=== PATIENT | female | born 1980 | race American Indian/Alaskan Native ===

== ENCOUNTER 2019-10-26 12:33 | Emergency (ER) | payer OTHER ==
--- NOTE | 2019-10-26 13:19 | Emergency Department Report ---
Blank Doc - Documentation Documentation: 39-year-old female that presents with dizziness and diarrhea. Patient is s/p 6 days ago lap tubal ligation. This initial assessment/diagnostic orders/clinical plan/treatment(s) is/are subject to change based on patient's health status, clinical progression and re- assessment by fellow clinical providers in the ED. Further treatment and workup at subsequent clinical providers discretion. Patient/guardians urged not to elope from the ED as their condition may be serious if not clinically assessed and managed. Initial orders include: 1- Patient sent to MAIN ED for further evaluation and treatment 2- labs 3- UA
[2019-10-26 14:37] LABS: Bilirubin,Urine NEG (Negative); Blood,Urine SM (Negative); Color,Urine Yellow (Yellow); Mucus,Urine FEW /HPF; Urobilinogen,Urine < 2.0 mg/dL (<2.0)
[2019-10-26] MEDS ORDERED: cloNIDine 0.1 MG TAB PO ONE (15:52)
--- NOTE | 2019-10-26 15:56 | Emergency Department Report ---
ED General Adult HPI - General Chief complaint: Dizziness Stated complaint: DIZZY,SOB,HEADACHE Time Seen by Provider: 10/26/19 13:17 Source: patient Mode of arrival: Ambulatory Limitations: No Limitations - History of Present Illness Initial comments: Patient is 39 years old female with no significant past medical history. Patient status post lap hysterectomy 6 days ago. Patient presented to the ER complaining of dizziness on and off since surgery. Patient denied any chest pain but stated that she have some chronic shortness of breath when she started moving. Patient denied any headache, weakness numbness or tingling sensation. Patient also denied any bowel or bladder incontinence. - Related Data Previous Rx's Medication Instructions Recorded Last Taken Type Folic Acid 1 mg PO DAILY #90 tablet 07/19/19 Unknown Rx Ondansetron [Zofran ODT TAB] 4 mg PO Q8H PRN #15 tab.rapdis 07/19/19 Unknown Rx Pantoprazole [Protonix TAB] 20 mg PO QDAY #30 tablet 07/19/19 Unknown Rx Pyridoxine [Vitamin B-6 50MG TAB] 25 mg PO TID #60 tablet 07/19/19 Unknown Rx Allergies Allergy/AdvReac Type Severity Reaction Status Date / Time metoclopramide [From Reglan] Allergy Unknown Verified 07/12/19 17:56 promethazine [From Phenergan] Allergy Unknown Verified 07/12/19 17:55 ED Review of Systems ROS: Stated complaint: DIZZY,SOB,HEADACHE Other details as noted in HPI Comment: All other systems reviewed and negative Constitutional: denies: chills, fever Respiratory: denies: cough, shortness of breath, SOB with exertion, SOB at rest, wheezing Cardiovascular: denies: chest pain, palpitations Gastrointestinal: diarrhea. denies: abdominal pain, nausea, vomiting, constipation, hematemesis, melena, hematochezia Musculoskeletal: denies: back pain Neurological: vertigo. denies: headache, weakness, numbness, paresthesias, confusion ED Past Medical Hx - Past Medical History Previous Medical History?: Yes Hx Hypertension: No Hx Heart Attack/AMI: No Hx Congestive Heart Failure: No Hx Diabetes: No Hx Liver Disease: No Hx Renal Disease: No Hx Sickle Cell Disease: No Hx Seizures: No Hx Asthma: No Hx COPD: No - Surgical History Past Surgical History?: Yes Hx Pacemaker: No Hx Internal Defibrillator: No Additional Surgical History: Polycystic cyst, Uterine fibroid, tubiligation - Social History Smoking Status: Never Smoker Substance Use Type: None - Medications Home Medications: Home Medications Medication Instructions Recorded Confirmed Last Taken Type Folic Acid 1 mg PO DAILY #90 tablet 07/19/19 Unknown Rx Ondansetron [Zofran ODT TAB] 4 mg PO Q8H PRN #15 tab.rapdis 07/19/19 Unknown Rx Pantoprazole [Protonix TAB] 20 mg PO QDAY #30 tablet 07/19/19 Unknown Rx Pyridoxine [Vitamin B-6 50MG TAB] 25 mg PO TID #60 tablet 07/19/19 Unknown Rx ED Physical Exam - General Limitations: No Limitations General appearance: alert, in no apparent distress - Head Head exam: Present: atraumatic, normocephalic, normal inspection - Eye Eye exam: Present: normal appearance, PERRL - ENT ENT exam: Present: normal exam, normal orophraynx, mucous membranes moist - Neck Neck exam: Present: normal inspection, full ROM. Absent: tenderness, meningismus - Respiratory Respiratory exam: Present: normal lung sounds bilaterally - Cardiovascular Cardiovascular Exam: Present: regular rate, normal rhythm, normal heart sounds - GI/Abdominal GI/Abdominal exam: Present: soft, normal bowel sounds. Absent: distended, tenderness, guarding, rebound, rigid, organomegaly, mass, bruit, pulsatile mass, hernia - Extremities Exam Extremities exam: Present: normal inspection, full ROM, normal capillary refill. Absent: pedal edema, calf tenderness - Back Exam Back exam: Present: normal inspection, full ROM. Absent: CVA tenderness (R), CVA tenderness (L) - Neurological Exam Neurological exam: Present: alert, oriented X3, CN II-XII intact, normal gait, reflexes normal - Psychiatric Psychiatric exam: Present: normal mood - Skin Skin exam: Present: warm, intact, normal color ED Course Vital Signs 10/26/19 10/26/19 10/26/19 12:42 13:19 16:03 Temperature 98.7 F 98.7 F Pulse Rate 102 H Respiratory 18 Rate Blood Pressure 162/111 Blood Pressure 129/83 [Right] O2 Sat by Pulse 97 Oximetry ED Medical Decision Making - Lab Data Result diagrams: 10/26/19 14:55 10/26/19 14:55 - EKG Data -: EKG Interpreted by Me EKG shows normal: sinus rhythm Rate: normal - EKG Data Interpretation: no acute changes - Radiology Data Radiology results: report reviewed - Medical Decision Making Patient is 39 years old female with no significant past medical history. Patient status post lap hysterectomy 6 days ago. Patient presented to the ER complaining of dizziness on and off since surgery. Patient denied any chest pain but stated that she have some chronic shortness of breath when she started moving. Patient denied any headache, weakness numbness or tingling sensation. Patient also denied any bowel or bladder incontinence. Labs reviewed and is unremarkable. CTA chest is negative for acute finding. EK G showed no ST elevation or depression. Urine is positive for UTI. Patient given prescription for ciprofloxacin and advised to follow-up with her primary care physician in the next 2 to 3 days and to return to the ER if she develop any new symptoms. Critical care attestation.: If time is entered above; I have spent that time in minutes in the direct care of this critically ill patient, excluding procedure time. ED Disposition Clinical Impression: Dizziness, UTI (urinary tract infection) Disposition: TO HOME OR SELFCARE Is pt being admited?: No Condition: Stable Instructions: Dizziness (ED), Urinary Tract Infection in Women (ED) Referrals: PRIMARY CARE, [Primary Care Provider] - 3-5 Days
[2019-10-26 16:03] VITALS: BP 129/83
[2019-10-26 16:04] LABS: Basophils % (Auto) 0.7 % (0.0-1.8); Eosinophils # (Auto) 0.7 K/mm3 (0.0-0.4); Eosinophils % (Auto) 10.3 % (0.0-4.3); Hematocrit 38.5 % (30.3-42.9); Hemoglobin 12.8 gm/dl (10.1-14.3); Lymphocytes # (Auto) 1.7 K/mm3 (1.2-5.4); Lymphocytes % (Auto) 26.7 % (13.4-35.0); Mean Corpuscular HGB Conc 33 % (30-34); Mean Corpuscular Volume 87 fl (79-97); Monocytes # (Auto) 0.5 K/mm3 (0.0-0.8); Monocytes % (Auto) 7.9 % (0.0-7.3); Platelet Count 268 K/mm3 (140-440); Red Cell Distribution Width 16.4 % (13.2-15.2)
[2019-10-26 16:22] LABS: Alanine Aminotransferase 11 units/L (7-56); BUN/Creatinine Ratio 13; Blood Urea Nitrogen 10 mg/dL (7-17); Calcium 9.3 mg/dL (8.4-10.2); Hemolysis Index 5
[2019-10-26 17:07] LABS: INR 0.91 (0.87-1.13)
[2019-10-26 17:08] LABS: Partial Thromboplastin Time 34.1 Sec. (24.2-36.6)
--- NOTE | 2019-10-26 17:42 | Cat Scan Report ---
CTA CHEST WITH CONTRAST INDICATION / CLINICAL INFORMATION: SOB, dizziness status post surgery 6 days ago. TECHNIQUE: Axial CT images were obtained through the chest after injection of IV contrast. 3 plane MIP and/or 3D reconstructions were produced. All CT scans at this location are performed using CT dose reduction f or ALARA by means of automated exposure control. COMPARISON: One view chest 07/29/2018 FINDINGS: PULMONARY ARTERIES: No pulmonary emboli. THORACIC AORTA: No significant abnormality. HEART: No significant abnormality. MEDIASTINUM / LETI: No significant abnormality. PLEURA: No pleural effusion. No pneumothorax. Subcentimeter. Fissural nodules in the medial left vince r fissure and lateral right major fissure likely represent benign intrapulmonary lymph nodes. LUNGS: No acute air space or interstitial disease. UPPER ABDOMEN: No acute findings. SKELETAL STRUCTURES: No significant osseous abnormality. ADDITIONAL FINDINGS: None. IMPRESSION: 1. No CT evidence for pulmonary embolism. 2. No acute findings. Signer Name: Joseph Montanez MD Signed: 10/26/2019 5:37 PM Workstation Name: [id number]
== END 2019-10-26 18:36 | disposition home or self-care (01) ==
LOC: ED 12:33
DX: N39.0 Urinary tract infection, site not specified (principal); Z98.51 Tubal ligation status; Z79.899 Other long term (current) drug therapy; Z88.8 Allergy status to other drugs, medicaments and biological substances
CPT/HCPCS: 36415; 71275; 80053; 81001; 83880; 85025; 85610; 85730; 87086; 99284; Q9967

== ENCOUNTER 2020-07-06 08:41 | Emergency (ER) | payer OTHER ==
--- NOTE | 2020-07-06 08:48 | Event Note ---
ED Screening Note ED Screening Note: here yest 2 accounts see labs/ua failed management today dizzy/can't stand severe abd pain This initial assessment/diagnostic orders/clinical plan/treatment(s) is/are subject to change based on patients health status, clinical progression and re- assessment by fellow clinical providers in the ED. Further treatment and workup at subsequent clinical providers discretion. Patient/guardian urged not to elope from the ED as their condition may be serious if not clinically assessed and managed. Initial orders include: labs main ER for IV tx
[2020-07-06] MEDS ORDERED: SODIUM CHLORIDE 0.9% 1000 ML 1,000 ML IV ONE (09:26)
[2020-07-06 09:56] LABS: Basophils % (Auto) 0.4 % (0.0-1.8); Eosinophils # (Auto) 0.1 K/mm3 (0.0-0.4); Hematocrit 42.1 % (30.3-42.9); Hemoglobin 14.3 gm/dl (10.1-14.3); Lymphocytes # (Auto) 1.1 K/mm3 (1.2-5.4); Lymphocytes % (Auto) 22.9 % (13.4-35.0); Mean Corpuscular HGB Conc 34 % (30-34); Mean Corpuscular Volume 90 fl (79-97); Monocytes # (Auto) 0.3 K/mm3 (0.0-0.8); Monocytes % (Auto) 6.4 % (0.0-7.3); Platelet Count 192 K/mm3 (140-440); Red Blood Count 4.68 M/mm3 (3.65-5.03); Red Cell Distribution Width 16.8 % (13.2-15.2)
[2020-07-06] MEDS ORDERED: ONDANSETRON 4 MG/2 ML INJ IV ONE (10:11)
[2020-07-06 10:13] LABS: Alanine Aminotransferase 9 units/L (7-56); Albumin 3.8 g/dL (3.9-5); BUN/Creatinine Ratio 11; Blood Urea Nitrogen 10 mg/dL (7-17); Calcium 8.8 mg/dL (8.4-10.2); Hemolysis Index 12
[2020-07-06] MEDS ORDERED: POTASSIUM CHLORIDE ER 20 MEQ TAB PO ONE (10:19)
[2020-07-06 12:22] LABS: HCG Qualitative,Urine Negative (Negative)
[2020-07-06 12:25] LABS: Bilirubin,Urine NEG (Negative); Blood,Urine NEG (Negative); Color,Urine Yellow (Yellow); Mucus,Urine 2+ /HPF
--- NOTE | 2020-07-06 13:12 | Cat Scan Report ---
CT ABDOMEN AND PELVIS WITHOUT CONTRAST INDICATION / CLINICAL INFORMATION: Flank pain. Nausea/vomiting/diarrhea x1 week. TECHNIQUE: Axial CT images were obtained through the abdomen and pelvis without IV contrast. All CT scans at this location are performed using CT dose reduction for ALARA by means of automated exposure control. COMPARISON: CT dated 12/02/18 FINDINGS: LOWER CHEST: No significant abnormality. LIVER: No significant abnormality. GALLBLADDER: Interval cholecystectomy. BILE DUCTS: No significant abnormality. PANCREAS: No significant abnormality. SPLEEN: No significant abnormality. ADRENALS: No significant abnormality. RIGHT KIDNEY / URETER: No significant abnormality. LEFT KIDNEY / URETER: No significant abnormality. STOMACH / SMALL BOWEL: No significant abnormality. COLON: No significant abnormality. APPENDIX: No significant abnormality. PERITONEUM: No free fluid. No free air. No fluid collection. LYMPH NODES: No significant adenopathy. AORTA / ARTERIES: No significant abnormality. IVC / VEINS: No significant abnormality. URINARY BLADDER: No significant abnormality. REPRODUCTIVE ORGANS: No significant abnormality. ADDITIONAL FINDINGS: None. SKELETAL SYSTEM: No significant abnormality. IMPRESSION: 1. No acute process in the abdomen or pelvis. 2. No urinary tract stones or hydronephrosis. Signer Name: Buffy Andino MD Signed: 07/06/2020 1:08 PM Workstation Name: [id number]
[2020-07-06] MEDS ORDERED: MORPHINE 2 MG/1 ML INJ IV ONE (13:43)
--- NOTE | 2020-07-06 13:46 | Emergency Department Report ---
ED Abdominal Pain HPI - General Chief Complaint: Abdominal Pain Stated Complaint: VOMITING Time Seen by Provider: 07/06/20 08:45 Source: patient Mode of arrival: Wheelchair Limitations: No Limitations - History of Present Illness Initial Comments: 40-year-old female, no past medical history, presents to ED with abdominal pain x1 week. She reports associated vomiting and diarrhea as well. Patient seen for same 4 days ago and diagnosed with gastroenteritis and UTI (patient was given a different account number at that time). Patient was given prescriptions for Bactrim, Bentyl, Zofran and Pepcid. Patient states her abdominal pain and nausea has continued despite the medication. Patient states pain is located in the lower abdomen and in the epigastric area. MD Complaint: abdominal pain -: week(s) (1) Location: LLQ, RLQ, epigastric, suprapubic Radiation: none Migration to: no migration Severity: moderate Quality: cramping Consistency: constant Improves With: nothing Worsens With: nothing Associated Symptoms: nausea, vomiting, diarrhea - Related Data Previous Rx's Medication Instructions Recorded Last Taken Type Folic Acid 1 mg PO DAILY #90 tablet 07/19/19 Unknown Rx Ondansetron [Zofran ODT TAB] 4 mg PO Q8H PRN #15 tab.rapdis 07/19/19 Unknown Rx Pantoprazole [Protonix TAB] 20 mg PO QDAY #30 tablet 07/19/19 Unknown Rx Pyridoxine [Vitamin B-6 50MG TAB] 25 mg PO TID #60 tablet 07/19/19 Unknown Rx Ciprofloxacin HCl [Ciprofloxacin 500 mg PO Q12HR #14 tab 10/26/19 Unknown Rx TAB] Ondansetron [Zofran Odt] 4 mg PO Q8HR PRN #20 tab.rapdis 07/06/20 Unknown Rx traMADoL [Ultram] 50 mg PO Q6HR PRN #7 tablet 07/06/20 Unknown Rx Allergies Allergy/AdvReac Type Severity Reaction Status Date / Time metoclopramide [From Reglan] Allergy Unknown Verified 07/06/20 08:46 promethazine [From Phenergan] Allergy Unknown Verified 07/06/20 08:46 ED Review of Systems ROS: Stated complaint: VOMITING Other details as noted in HPI Comment: All other systems reviewed and negative Constitutional: denies: chills, fever Gastrointestinal: abdominal pain, nausea, vomiting, diarrhea Genitourinary: denies: dysuria, frequency, discharge ED Past Medical Hx - Past Medical History Hx Hypertension: No Hx Heart Attack/AMI: No Hx Congestive Heart Failure: No Hx Diabetes: No Hx Liver Disease: No Hx Renal Disease: No Hx Sickle Cell Disease: No Hx Seizures: No Hx Asthma: No Hx COPD: No - Surgical History Hx Pacemaker: No Hx Internal Defibrillator: No Additional Surgical History: Polycystic cyst, Uterine fibroid, tubiligation - Social History Smoking Status: Never Smoker Substance Use Type: None - Medications Home Medications: Home Medications Medication Instructions Recorded Confirmed Last Taken Type Folic Acid 1 mg PO DAILY #90 tablet 07/19/19 Unknown Rx Ondansetron [Zofran ODT TAB] 4 mg PO Q8H PRN #15 tab.rapdis 07/19/19 Unknown Rx Pantoprazole [Protonix TAB] 20 mg PO QDAY #30 tablet 07/19/19 Unknown Rx Pyridoxine [Vitamin B-6 50MG TAB] 25 mg PO TID #60 tablet 07/19/19 Unknown Rx Ciprofloxacin HCl [Ciprofloxacin 500 mg PO Q12HR #14 tab 10/26/19 Unknown Rx TAB] Ondansetron [Zofran Odt] 4 mg PO Q8HR PRN #20 tab.rapdis 07/06/20 Unknown Rx traMADoL [Ultram] 50 mg PO Q6HR PRN #7 tablet 07/06/20 Unknown Rx ED Physical Exam - General Limitations: No Limitations General appearance: alert, in no apparent distress - Head Head exam: Present: atraumatic, normocephalic - Eye Eye exam: Present: normal appearance, EOMI - ENT ENT exam: Present: mucous membranes moist - Neck Neck exam: Present: normal inspection - Respiratory Respiratory exam: Present: normal lung sounds bilaterally. Absent: respiratory distress - Cardiovascular Cardiovascular Exam: Present: regular rate, normal rhythm - GI/Abdominal GI/Abdominal exam: Present: soft, tenderness (Epigastric and suprapubic). Absent: distended - Extremities Exam Extremities exam: Present: normal inspection - Neurological Exam Neurological exam: Present: alert, oriented X3 - Psychiatric Psychiatric exam: Present: normal affect, normal mood - Skin Skin exam: Present: warm, dry, intact, normal color ED Course Vital Signs 07/06/20 07/06/20 07/06/20 08:45 11:45 12:29 Temperature 98.6 F Pulse Rate 90 Respiratory 22 Rate Blood Pressure 129/86 141/86 141/86 Blood Pressure [Left] O2 Sat by Pulse 100 99 Oximetry 07/06/20 07/06/20 07/06/20 12:30 12:46 13:00 Temperature Pulse Rate Respiratory Rate Blood Pressure 141/86 141/86 141/86 Blood Pressure [Left] O2 Sat by Pulse 100 100 100 Oximetry 07/06/20 07/06/20 07/06/20 13:16 13:30 13:46 Temperature Pulse Rate Respiratory Rate Blood Pressure 141/86 141/86 141/86 Blood Pressure [Left] O2 Sat by Pulse 100 100 100 Oximetry 07/06/20 07/06/20 07/06/20 14:00 14:16 14:29 Temperature Pulse Rate 87 Respiratory 16 Rate Blood Pressure 140/94 140/94 Blood Pressure 140/94 [Left] O2 Sat by Pulse 97 100 100 Oximetry 07/06/20 07/06/20 07/06/20 14:30 14:46 15:00 Temperature Pulse Rate Respiratory Rate Blood Pressure 140/94 140/94 140/94 Blood Pressure [Left] O2 Sat by Pulse 100 100 100 Oximetry 07/06/20 07/06/20 07/06/20 15:16 15:30 15:46 Temperature Pulse Rate Respiratory Rate Blood Pressure 140/94 140/94 140/94 Blood Pressure [Left] O2 Sat by Pulse 99 99 100 Oximetry ED Medical Decision Making - Lab Data Result diagrams: 07/06/20 09:25 07/06/20 09:25 - Radiology Data Radiology results: report reviewed, image reviewed - Medical Decision Making 40-year-old female presents to ED with vomiting, diarrhea, abdominal pain x1 week. Patient seen 4 days ago for same and appear to have a UTI for which she was given Bactrim. Today UA appears to be normal. Your vaginal symptoms. Remainder of labs are unremarkable. CT scan negative for any acute findings. Vital signs are stable. Patient given IV fluids, morphine, Zofran, GI cocktail here in the ED. Patient will not require admission at this time. She will be discharged and advised to follow-up with GI. Prescriptions given, return precautions given. - Differential Diagnosis Pancreatitis, UTI, bowel obstruction Critical care attestation.: If time is entered above; I have spent that time in minutes in the direct care of this critically ill patient, excluding procedure time. ED Disposition Clinical Impression: Abdominal pain, Nausea vomiting and diarrhea Disposition: - TO HOME OR SELFCARE Is pt being admited?: No Condition: Stable Instructions: Nausea and Vomiting, Adult, [id number], Abdominal Pain, Adult, [id number], Diarrhea, Adult, [id number], Abdominal Pain (ED) Prescriptions: traMADoL [Ultram] 50 mg PO Q6HR PRN #7 tablet PRN Reason: Pain Ondansetron [Zofran Odt] 4 mg PO Q8HR PRN #20 tab.rapdis PRN Reason: Vomiting Referrals: PRIMARY CARE, [Primary Care Provider] - 3-5 Days [facility] [Provider Group] - 3-5 Days [facility] [Provider Group] - 3-5 Days
[2020-07-06 14:30] VITALS: BP 140/94
[2020-07-06] MEDS ORDERED: LIDOCAINE VISCOUS 2% 15 ML ORAL LIQD PO ONE (15:06)
[2020-07-06] MEDS ORDERED: ALUM-MAG HYDROXIDE-SIMETHICONE 200-200-20MG/5ML ORAL LIQD 30 ML PO ONE (15:06)
== END 2020-07-06 15:56 | disposition home or self-care (01) ==
LOC: ED 08:41
DX: R10.30 Lower abdominal pain, unspecified (principal); R10.13 Epigastric pain; R11.2 Nausea with vomiting, unspecified; R19.7 Diarrhea, unspecified; Z98.890 Other specified postprocedural states; Z79.2 Long term (current) use of antibiotics; Z79.899 Other long term (current) drug therapy; Z88.8 Allergy status to other drugs, medicaments and biological substances
CPT/HCPCS: 36415; 74176; 80053; 81001; 81025; 82140; 83735; 85025; 87040; 87086; 96361; 96374; 99284; J2270; J7030

== ENCOUNTER 2020-07-27 03:15 | Observation (INO) | payer OTHER ==
[2020-07-27 03:56] LABS: Basophils % (Auto) 0.2 % (0.0-1.8); Eosinophils # (Auto) 0.1 K/mm3 (0.0-0.4); Hematocrit 37.6 % (30.3-42.9); Hemoglobin 12.9 gm/dl (10.1-14.3); Lymphocytes # (Auto) 0.9 K/mm3 (1.2-5.4); Lymphocytes % (Auto) 12.6 % (13.4-35.0); Mean Corpuscular HGB Conc 34 % (30-34); Mean Corpuscular Volume 92 fl (79-97); Monocytes # (Auto) 0.4 K/mm3 (0.0-0.8); Monocytes % (Auto) 4.7 % (0.0-7.3); Platelet Count 210 K/mm3 (140-440); Red Blood Count 4.09 M/mm3 (3.65-5.03); Red Cell Distribution Width 16.6 % (13.2-15.2)
[2020-07-27 04:20] LABS: Alanine Aminotransferase 16 units/L (7-56); Blood Urea Nitrogen 12 mg/dL (7-17); Calcium 8.7 mg/dL (8.4-10.2); Hemolysis Index 3
[2020-07-27 04:22] LABS: BUN/Creatinine Ratio 17
--- NOTE | 2020-07-27 04:48 | XRay Report ---
CHEST 2 VIEWS 0434 INDICATION / CLINICAL INFORMATION: MAGED COMPARISON: None currently available FINDINGS: SUPPORT DEVICES: None. HEART / MEDIASTINUM: No significant abnormality. LUNGS / PLEURA: No significant pulmonary or pleural abnormality. No pneumothorax. ADDITIONAL FINDINGS: No significant additional findings. IMPRESSION: No significant acute abnormality Signer Name: Luis Ann MD Signed: 07/27/2020 4:44 AM Workstation Name: [id number]
--- NOTE | 2020-07-27 05:23 | Cat Scan Report ---
CTA CHEST WITH IV CONTRAST INDICATION: Difficulty Breathing, dizziness CONTRAST: 100 cc Omnipaque 350 IV COMPARISON: 10/26/2019 Three-plane MIP reconstructions were produced. All CT scans at this location are performed using CT d ose reduction for ALARA by means of automated exposure control. FINDINGS: No mediastinal or hilar masses are seen. No pleural effusions are noted. Visualized portion s of the upper abdomen show no acute abnormalities. Gallbladder has been removed. No pneumothorax or pneumomediastinum are seen. Lung rollins are clear. Aorta shows no aneurysmal dilatation or evidence of dissection. Moderate opacification of the pulmonary arterial system was achieved. I do not see convincing evidenc e of pulmonary thromboembolism. Mild artifact is seen in some smaller arteries. IMPRESSION: No acute abnormalities are seen Signer Name: Luis Ann MD Signed: 07/27/2020 5:18 AM Workstation Name: [id number]
[2020-07-27] MEDS ORDERED: SODIUM CHLORIDE 0.9% 1000 ML 1,000 ML IV ONE (06:27)
--- NOTE | 2020-07-27 06:44 | Emergency Department Report ---
HPI - General Chief Complaint: Dizziness Time Seen by Provider: 07/27/20 06:06 - HPI HPI: 40-year-old -[place] female presents to the emergency department from home with a complaint of dizziness/lightheadedness, generalized chest discomfort, shortness of breath, and nausea without vomiting that has been going on for the past 4 to 5 hours. The patient says that she has a history of anxiety for which she takes mirtazapine and Abilify compliantly. However, she says that instead of treating her anxiety she feels like these medications either did not work or made her symptoms worse. There is no specific thing that she is feeling anxious about. Patient also says that this anxiety is atypical as she feels like she is having difficulty getting her words out. She did not take anything for her symptoms prior to presentation today. She also has a past medical history of polycystic ovaries, uterine fibroids, and has a tubal ligation. She denies any tobacco or illicit drug use. ED Past Medical Hx - Past Medical History Previous Medical History?: No Hx Hypertension: No Hx Heart Attack/AMI: No Hx Congestive Heart Failure: No Hx Diabetes: No Hx Liver Disease: No Hx Renal Disease: No Hx Sickle Cell Disease: No Hx Seizures: No Hx Psychiatric Treatment: Yes Hx Asthma: No Hx COPD: No - Surgical History Past Surgical History?: Yes Hx Pacemaker: No Hx Internal Defibrillator: No Additional Surgical History: Polycystic cyst, Uterine fibroid, tubiligation - Social History Smoking Status: Never Smoker Substance Use Type: None - Medications Home Medications: Home Medications Medication Instructions Recorded Confirmed Last Taken Type ARIPiprazole [Abilify] 10 mg PO DAILY 07/27/20 07/27/20 Unknown History Famotidine [Pepcid] 20 mg PO QDAY 07/27/20 07/27/20 Unknown History Mirtazapine [Remeron 15mg TAB] 15 mg PO QHS 07/27/20 07/27/20 Unknown History ED Review of Systems ROS: Stated complaint: MAGED/DIZZINESS Other details as noted in HPI Comment: All other systems reviewed and negative Constitutional: denies: chills, fever Eyes: denies: eye pain, vision change ENT: denies: ear pain, throat pain Respiratory: shortness of breath. denies: cough Cardiovascular: chest pain. denies: edema, syncope Gastrointestinal: nausea. denies: abdominal pain, vomiting Genitourinary: denies: dysuria, discharge Musculoskeletal: denies: back pain, arthralgia Skin: denies: rash, lesions Neurological: denies: numbness, paresthesias Physical Exam - Physical Exam Vital Signs: Vital Signs 07/27/20 07/27/20 07/27/20 00:41 03:18 03:57 Temperature 98.6 F Pulse Rate 114 H 97 H Respiratory 18 18 Rate Blood Pressure 115/69 148/93 115/69 O2 Sat by Pulse 98 100 Oximetry 07/27/20 07/27/20 07/27/20 04:01 05:15 05:31 Temperature Pulse Rate 93 H 106 H 102 H Respiratory 14 22 17 Rate Blood Pressure 115/69 137/87 137/87 O2 Sat by Pulse 98 98 100 Oximetry 07/27/20 06:15 Temperature Pulse Rate 98 H Respiratory 17 Rate Blood Pressure 124/84 O2 Sat by Pulse 100 Oximetry Physical Exam: GENERAL: The patient is well-developed well-nourished. HENT: Normocephalic. Atraumatic. Patient has moist mucous membranes. EYES: Extraocular motions are intact. Pupils equal reactive to light bilaterally. No nystagmus. NECK: Supple. Trachea is midline. CHEST/LUNGS: Clear to auscultation. There is no respiratory distress noted. HEART/CARDIOVASCULAR: Regular. There is mild tachycardia. There is no murmur. ABDOMEN: Abdomen is soft, nontender. Patient has normal bowel sounds. There is no abdominal distention. SKIN: Skin is warm and dry. NEURO: The patient is awake, alert, and oriented. The patient is cooperative. The patient has no motor or sensory deficits. Patient has some stuttering speech and mild aphasia. Cranial nerves II through XII grossly intact. No facial asymmetry. No pronator drift or dysmetria. MUSCULOSKELETAL: There is no tenderness or deformity. There is no limitation range of motion. ED Course Vital Signs 07/27/20 07/27/20 07/27/20 00:41 03:18 03:57 Temperature 98.6 F Pulse Rate 114 H 97 H Respiratory 18 18 Rate Blood Pressure 115/69 148/93 115/69 O2 Sat by Pulse 98 100 Oximetry 07/27/20 07/27/20 07/27/20 04:01 05:15 05:31 Temperature Pulse Rate 93 H 106 H 102 H Respiratory 14 22 17 Rate Blood Pressure 115/69 137/87 137/87 O2 Sat by Pulse 98 98 100 Oximetry 07/27/20 06:15 Temperature Pulse Rate 98 H Respiratory 17 Rate Blood Pressure 124/84 O2 Sat by Pulse 100 Oximetry ED Medical Decision Making - Lab Data Result diagrams: 07/27/20 03:33 07/27/20 03:33 Lab Results 07/27/20 07/27/20 07/27/20 Range/Units 03:33 03:33 03:33 WBC 7.5 (4.5-11.0) K/mm3 RBC 4.09 (3.65-5.03) M/mm3 Hgb 12.9 (10.1-14.3) gm/dl Hct 37.6 (30.3-42.9) % MCV 92 (79-97) fl MCH 32 (28-32) pg MCHC 34 (30-34) % RDW 16.6 H (13.2-15.2) % Plt Count 210 (140-440) K/mm3 Lymph % (Auto) 12.6 L (13.4-35.0) % [place] % (Auto) 4.7 (0.0-7.3) % Eos % (Auto) 1.0 (0.0-4.3) % Baso % (Auto) 0.2 (0.0-1.8) % Lymph # (Auto) 0.9 L (1.2-5.4) K/mm3 [place] # (Auto) 0.4 (0.0-0.8) K/mm3 Eos # (Auto) 0.1 (0.0-0.4) K/mm3 Baso # (Auto) 0.0 (0.0-0.1) K/mm3 Seg Neutrophils % 81.5 H (40.0-70.0) % Seg Neutrophils # 6.1 (1.8-7.7) K/mm3 Sodium 139 (137-145) mmol/L Potassium 3.5 L (3.6-5.0) mmol/L Chloride 104.4 (98-107) mmol/L Carbon Dioxide 23 (22-30) mmol/L Anion Gap 15 mmol/L BUN 12 (7-17) mg/dL Creatinine 0.7 (0.6-1.2) mg/dL Estimated GFR > 60 ml/min BUN/Creatinine Ratio 17 % Glucose 121 H (65-100) mg/dL Calcium 8.7 (8.4-10.2) mg/dL Total Bilirubin 0.20 (0.1-1.2) mg/dL AST 21 (5-40) units/L ALT 16 (7-56) units/L Alkaline Phosphatase 81 (35-129) units/L Troponin T < 0.010 (0.00-0.029) ng/mL Total Protein 6.9 (6.3-8.2) g/dL Albumin 4.0 (3.9-5) g/dL Albumin/Globulin Ratio 1.4 % TSH (0.270-4.200) mlU/mL HCG, Qual Negative (Negative) 07/27/20 07/27/20 Range/Units 06:58 06:58 WBC (4.5-11.0) K/mm3 RBC (3.65-5.03) M/mm3 Hgb (10.1-14.3) gm/dl Hct (30.3-42.9) % MCV (79-97) fl MCH (28-32) pg MCHC (30-34) % RDW (13.2-15.2) % Plt Count (140-440) K/mm3 Lymph % (Auto) (13.4-35.0) % [place] % (Auto) (0.0-7.3) % Eos % (Auto) (0.0-4.3) % Baso % (Auto) (0.0-1.8) % Lymph # (Auto) (1.2-5.4) K/mm3 [place] # (Auto) (0.0-0.8) K/mm3 Eos # (Auto) (0.0-0.4) K/mm3 Baso # (Auto) (0.0-0.1) K/mm3 Seg Neutrophils % (40.0-70.0) % Seg Neutrophils # (1.8-7.7) K/mm3 Sodium (137-145) mmol/L Potassium (3.6-5.0) mmol/L Chloride (98-107) mmol/L Carbon Dioxide (22-30) mmol/L Anion Gap mmol/L BUN (7-17) mg/dL Creatinine (0.6-1.2) mg/dL Estimated GFR ml/min BUN/Creatinine Ratio % Glucose (65-100) mg/dL Calcium (8.4-10.2) mg/dL Total Bilirubin (0.1-1.2) mg/dL AST (5-40) units/L ALT (7-56) units/L Alkaline Phosphatase (35-129) units/L Troponin T < 0.010 (0.00-0.029) ng/mL Total Protein (6.3-8.2) g/dL Albumin (3.9-5) g/dL Albumin/Globulin Ratio % TSH 1.740 (0.270-4.200) mlU/mL HCG, Qual (Negative) - EKG Data -: EKG Interpreted by Me EKG shows normal: sinus rhythm, intervals, QRS complexes (Q waves to lead III), ST-T waves Rate: tachycardia (103 bpm) - EKG Data When compared to previous EKG there are: previous EKG unavailable Interpretation: other (Sinus rhythm at 103 bpm, normal axis, normal intervals, Q waves to lead III. No ST elevation SD) - Radiology Data Radiology results: report reviewed, image reviewed interpreted by me: Chest x-ray does not show any acute process. There are no pleural effusions, obvious pneumonia and there is no pneumothorax. No significant cardiomegaly. CT head without contrast INDICATION : Patient complains of a headache. TECHNIQUE: Axial imaging performed from the skull apex through the skull base without the use of contrast. All CT scans at this location are performed using CT dose reduction for [employer] by means of automated exposure control. COMPARISON: CT head from 02/16/2017 FINDINGS: Parenchyma: No acute intracranial hemorrhage or parenchymal abnormality. Ventricles: Ventricles are normal in size and appear symmetric. Soft tissues: Soft tissues including the orbits appear normal. Bones: No acute osseous abnormality. Sinuses: There is a moderate-sized left-sided maxillary mucus retention cyst. Remaining sinuses and mastoid air cells are clear. IMPRESSION: 1. No acute abnormality. 2. Moderate-sized mucus retention cyst in the left maxillary sinus. CTA CHEST WITH IV CONTRAST INDICATION: Difficulty Breathing, dizziness CONTRAST: 100 cc Omnipaque 350 IV COMPARISON: 10/26/2019 Three-plane MIP reconstructions were produced. All CT scans at this location are performed using CT dose reduction for ALARA by means of automated exposure control. FINDINGS: No mediastinal or hilar masses are seen. No pleural effusions are noted. Visualized portions of the upper abdomen show no acute abnormalities. Gallbladder has been removed. No pneumothorax or pneumomediastinum are seen. Lung rollins are clear. Aorta shows no aneurysmal dilatation or evidence of dissection. Moderate opacification of the pulmonary arterial system was achieved. I do not see convincing evidence of pulmonary thromboembolism. Mild artifact is seen in some smaller arteries. IMPRESSION: No acute abnormalities are seen - Medical Decision Making This patient presented to the emergency department early this morning with a complaint of shortness of breath, palpitations, anxiety, chest discomfort, difficulty with speech. EKG does not have any morphology consistent with ST elevation myocardial infarction. Labs have been mostly unremarkable including CBC, metabolic panel, troponin, normal thyroid function. Chest x-ray did not show any pneumonia, pleural effusions, pneumothorax, widened mediastinum, or any other acute process. CT angiography of the chest did not show any pulmonary embolism, dissection, or any other acute process. Much of the patient's work-up was initiated and completed prior to my shift starting. When I saw the patient she mentioned that she was having some difficulty with her speech that she describes almost like an aphasia. For this reason, I sent the patient for a CT scan of the head without contrast that did not show any hemorrhage, large vessel occlusion, or any other acute process. She was seen by the telemedicine neurologist to agree that the patient had some mild aphasia and gave her an NIH stroke scale of 1. For this reason he recommended admission for further stroke work-up. Patient was given a full dose aspirin and was admitted to the hospitalist service. Critical Care Time: No Critical care attestation.: If time is entered above; I have spent that time in minutes in the direct care of this critically ill patient, excluding procedure time. ED Disposition Clinical Impression: Aphasia, Panic attack, Stroke-like symptom Chest pain Qualifiers: Chest pain type: unspecified Qualified Code(s): R07.9 - Chest pain, unspecified Disposition: OP ADMIT IP TO THIS HOSP Is pt being admited?: Yes Condition: Serious Time of Disposition: : Heart Score - HEART Score History: Slightly suspicious EKG: Normal Age: < 45 Risk factors: No known risk factors Troponin: < normal limit HEART Score: 0 - EKG Read Time Time EKG Completed: 03:29 EKG Read Time: 03:32 - Critical Actions Critical Actions: 0-3 pts:0.9-1.7%risk of adverse cardiac event.Candidate for discharge
--- NOTE | 2020-07-27 08:29 | Cat Scan Report ---
CT head without contrast INDICATION : Patient complains of a headache. TECHNIQUE: Axial imaging performed from the skull apex through the skull base without the use of con trast. All CT scans at this location are performed using CT dose reduction for ALARA by means of aut omated exposure control. COMPARISON: CT head from 02/16/2017 FINDINGS: Parenchyma: No acute intracranial hemorrhage or parenchymal abnormality. Ventricles: Ventricles are normal in size and appear symmetric. Soft tissues: Soft tissues including the orbits appear normal. Bones: No acute osseous abnormality. Sinuses: There is a moderate-sized left-sided maxillary mucus retention cyst. Remaining sinuses and mastoid air cells are clear. IMPRESSION: 1. No acute abnormality. 2. Moderate-sized mucus retention cyst in the left maxillary sinus. Signer Name: Ezio Malone MD Signed: 07/27/2020 8:24 AM Workstation Name: [id number]
[2020-07-27] MEDS ORDERED: ASPIRIN 81 MG TAB CHEW PO ONE (09:15)
--- NOTE | 2020-07-27 09:19 | Consultation ---
History of Present Illness History of present illness: [facility] Consult Note # Demographics Consult Type: General Neurology Patient Location: Emergency Room First Name: Antonella Leonardo Last Name: Tyler Date of : 1980 Age: 40 Gender: Female Time of Initial Page (): 07/27/2020, 08:49 Time of Return Call ( Time): 07/27/2020, 08:49 # HPI Chief Complaint: word finding difficulties History: 40F with anxiety on mirtazapine and abilify presents with word finding difficulties, lightheadedness, and chest pain/SOB. Neuro exam is otherwise unremarkable. LKWT at approximately 2200. At 2200, was having trouble sleeping, started pacing. took her for a drive, still not feeling well, so then come to the hospital # Scores Time of exam and NIHSS (): 07/27/2020, 09:07 Level of Consciousness 1a: [0] = Alert; keenly responsive LOC Questions 1b: [0] = Answers both questions correctly LOC Commands 1c: [0] = Performs both tasks correctly Best Gaze 2: [0] = Normal Visual 3: [0] = No visual loss Facial Palsy 4: [0] = Normal symmetrical movements Motor Arm Left 5a: [0] = No drift Motor Arm Right 5b: [0] = No drift Motor Leg Left 6a: [0] = No drift Motor Leg Right 6b: [0] = No drift Limb Ataxia 7: [0] = Absent Sensory 8: [0] = Normal Best Language 9: [1] = [id number] aphasia Dysarthria 10: [0] = Normal Extinction and Inattention 11: [0] = No abnormality NIHSS Total: 1 # Data Time Head CT personally read by me (): 07/27/2020, 08:[address]: no bleed, per radiologist read CTA Head: left ICA occlusion # Assessment Impression: Ischemic Stroke (Acute), vs anxiety # Plan Thrombolytic/Intervention: NOT IV Thrombolytic or IA Intervention Thrombolytic Exclusion: > 4.5 hours Intraarterial Exclusion: clinically consistent with small vessel disease Target Blood Pressure: SBP < 220, DBP < 105 Imaging: (urgency: routine admission): MR Angiogram Head without contrast, MR Angiogram Neck with contrast, MRI Brain without contrast Diagnostic Test: echo with bubble study Therapy/Evaluation: speech/swallow consultation Medication: ASA 325 then 81 daily, atorvastatin 80 and tailor dose to LDL < 70 goal DVT Prophylaxis: SCD, chemical DVT prophylaxis Other: permissive hypertension, telemetry monitoring, would not pursue stroke work-up if MRI is negative, I have discussed my recommendations with the referring provider Disposition: admit # Logistics Telemedicine: Interactive 2 way audio and visual telecommunication technology was utilized during this visit Electronically signed at 07/27/2020 09:18 (Eastern Time) by Christoph Quick MD Medications and Allergies Allergies Allergy/AdvReac Type Severity Reaction Status Date / Time metoclopramide [From Reglan] Allergy Unknown Verified 07/06/20 08:46 promethazine [From Phenergan] Allergy Unknown Verified 07/06/20 08:46 Home Medications Medication Instructions Recorded Confirmed Last Taken Type Folic Acid 1 mg PO DAILY #90 tablet 07/19/19 Unknown Rx Ondansetron [Zofran ODT TAB] 4 mg PO Q8H PRN #15 tab.rapdis 07/19/19 Unknown Rx Pantoprazole [Protonix TAB] 20 mg PO QDAY #30 tablet 07/19/19 Unknown Rx Pyridoxine [Vitamin B-6 50MG TAB] 25 mg PO TID #60 tablet 07/19/19 Unknown Rx Ciprofloxacin HCl [Ciprofloxacin 500 mg PO Q12HR #14 tab 10/26/19 Unknown Rx TAB] Ondansetron [Zofran Odt] 4 mg PO Q8HR PRN #20 tab.rapdis 07/06/20 Unknown Rx traMADoL [Ultram] 50 mg PO Q6HR PRN #7 tablet 07/06/20 Unknown Rx Physical Examination - Vital Signs Vital Signs: Vital Signs BP 115/69 07/27/20 00:41 Results - Laboratory Findings CBC and BMP: 07/27/20 03:33 07/27/20 03:33 Abnormal Lab Findings: Abnormal Labs 07/27/20 07/27/20 03:33 03:33 RDW 16.6 H Lymph % (Auto) 12.6 L Lymph # (Auto) 0.9 L Seg Neutrophils % 81.5 H Potassium 3.5 L Glucose 121 H
--- NOTE | 2020-07-27 11:07 | History and Physical Report ---
History of Present Illness Date of examination: 07/27/20 Date of admission: 07/27/20 09:28 Chief complaint: Dizziness, generalized weakness, word finding difficulty History of present illness: 40-year-old -Citizen Of [place] female patient with significant past medical history of generalized anxiety disorder recently was admitted and discharge from [facility] recently after receiving treatment for generalized anxiety disorder, presented to the emergency room today with the complaints of severe dizziness lightheadedness anxiety chest discomfort and difficulty finding words. Patient reports that she could not talk. Patient also started having nausea vo miting and shortness of breath for the last 4 to 5 hours. Code stroke was called, patient was evaluated by telemetry neurologist, recommended admission and full stroke work-up. CT head without contrast no acute abnormality, mucous retention cyst in left maxillary sinus Patient is not a candidate for TPA, started on aspirin and statin. Being admitted for extensive neuro work-up. Patient denies any headache, complains of generalized weakness and dizziness. Vague chest pain intermittent, did not have chest pain at the time of my evaluation No other history available Past History Past Medical History: hypertension, other (Generalized anxiety) Past Surgical History: cholecystectomy, Other (Uterine fibroid, bilateral tubal ligation, cyst removal) Social history: denies: smoking, alcohol abuse, prescription drug abuse Family history: no significant family history Medications and Allergies Allergies Allergy/AdvReac Type Severity Reaction Status Date / Time metoclopramide [From Reglan] Allergy Unknown Verified 07/06/20 08:46 promethazine [From Phenergan] Allergy Unknown Verified 07/06/20 08:46 Home Medications Medication Instructions Recorded Confirmed Last Taken Type ARIPiprazole [Abilify] 10 mg PO DAILY 07/27/20 07/27/20 Unknown History Mirtazapine [Remeron 15mg TAB] 15 mg PO QHS 07/27/20 07/27/20 Unknown History RX: Famotidine [Pepcid] 20 mg PO QDAY 07/27/20 07/27/20 Unknown History Review of Systems Constitutional: malaise, other (Dizziness) Ears, nose, mouth and throat: no nasal congestion, no nasal discharge Cardiovascular: chest pain, lightheadedness, shortness of breath (Sometimes) Respiratory: no cough, no hemoptysis Gastrointestinal: no abdominal pain, no nausea, no vomiting Genitourinary Female: no dysuria Musculoskeletal: no myalgias, no arthritis Integumentary: no rash, no lesions Neurological: weakness, other (Worsening difficulty. Dizziness) Psychiatric: anxiety (Generalized anxiety) Endocrine: no cold intolerance, no heat intolerance Hematologic/Lymphatic: no easy bruising, no easy bleeding Allergic/Immunologic: no urticaria, no allergic rhinitis Exam - Constitutional Vitals: Temp Pulse Resp BP Pulse Ox 98.6 F 104 H 18 139/97 100 07/27/20 03:18 07/27/20 09:01 07/27/20 09:01 07/27/20 09:01 07/27/20 09:01 General appearance: Present: no acute distress, well-nourished, obese - EENT Eyes: Present: PERRL, EOM intact - Neck Neck: Present: supple, normal ROM - Respiratory Respiratory effort: normal Respiratory: bilateral: diminished, negative: rales, rhonchi, wheezing - Cardiovascular Rhythm: regular Heart Sounds: Present: S1 & S2 - Extremities Extremities: no ischemia, No edema - Abdominal General gastrointestinal: Present: soft, non-tender, non-distended, normal bowel sounds - Integumentary Integumentary: Present: clear, warm - Musculoskeletal Musculoskeletal: strength equal bilaterally, generalized weakness - Psychiatric Psychiatric: appropriate mood/affect, other (Confused at times) - Neurologic Neurologic: moves all extremities HEART Score - HEART Score EKG: Normal Age: < 45 Risk factors: No known risk factors Troponin: Troponin T < 0.010 ng/mL (0.00-0.029) 07/27/20 06:58 Troponin: < normal limit - Critical Actions Critical Actions: 0-3 pts:0.9-1.7%risk of adverse cardiac event.Candidate for discharge Results - Labs CBC & Chem 7: 07/27/20 03:33 07/27/20 03:33 Labs: Abnormal lab results 07/27/20 07/27/20 Range/Units 03:33 03:33 RDW 16.6 H (13.2-15.2) % Lymph % (Auto) 12.6 L (13.4-35.0) % Lymph # (Auto) 0.9 L (1.2-5.4) K/mm3 Seg Neutrophils % 81.5 H (40.0-70.0) % Potassium 3.5 L (3.6-5.0) mmol/L Glucose 121 H (65-100) mg/dL Assessment and Plan --Dizziness, slurred speech, word finding difficulty Not a candidate for TPA Telemetry neurologist recommended CVA work-up Admit to the hospital, aspirin and statin Extensive neuro work-up MRI/MRA brain Carotid Doppler, echocardiogram Neuro consult PT, OT, rehabilitation, speech therapy --Possible acute CVA; Not a candidate for TPA, aspirin and statin, extensive neuro work-up Neurology consult --Generalized anxiety disorder; Symptoms could be partly due to general anxiety continue current psych medications Psych consult --Obesity; BMI 39.1 Patient needs weight reduction when medically stable Dietary modification, lifestyle changes, exercise as tolerated and weight reduction When medically stable --Full CODE STATUS; --DVT prophylaxis; Lovenox Physical therapy evaluation and treatment Occupational Therapy evaluate and treat Speech therapy evaluate and treat as needed DC planning per case management We will closely monitor patient and adjust management as needed Plan of care reviewed with the patient and her nurse I spent total 50 minutes coordinating this admission
--- NOTE | 2020-07-27 12:47 | Consultation ---
History of Present Illness Consult date: 07/27/20 Reason for Consult: CP and dizziness History of present illness: this is 40 ys old femal presented to ER last night for evaluation of dizzy feel ing anxiety and CP none specific according to pt. that started 10 pm yesterday she presented to hospital she had some what similar event 1-2 weeks back and according to her she was diagnosed with underly anxiety seen psychiatry and is on Remeron and abilify ; Medications and Allergies Allergies Allergy/AdvReac Type Severity Reaction Status Date / Time metoclopramide [From Reglan] Allergy Unknown Verified 07/06/20 08:46 promethazine [From Phenergan] Allergy Unknown Verified 07/06/20 08:46 Home Medications Medication Instructions Recorded Confirmed Last Taken Type ARIPiprazole [Abilify] 10 mg PO DAILY 07/27/20 07/27/20 Unknown History Famotidine [Pepcid] 20 mg PO QDAY 07/27/20 07/27/20 Unknown History Mirtazapine [Remeron 15mg TAB] 15 mg PO QHS 07/27/20 07/27/20 Unknown History Active Meds: Active Medications Aripiprazole (Aripiprazole 10 Mg Tab) 10 mg PO DAILY PRECIOUS Aspirin (Aspirin 325 Mg Tab) 325 mg PO QDAY PRECIOUS Atorvastatin Calcium (Atorvastatin 40 Mg Tab) 40 mg PO QHS PRECIOUS Famotidine (Famotidine 20 Mg Tab) 20 mg PO QDAY PRECIOUS Mirtazapine (Mirtazapine 15 Mg Tab) 15 mg PO QHS PRECIOUS Sodium Chloride (Sodium Chloride 0.9% 10 Ml Flush Syringe) 10 ml IV PRN PRN PRN Reason: LINE FLUSH Physical Examination - Vital Signs Vital Signs: Vital Signs BP 115/69 07/27/20 00:41 Results - Laboratory Findings CBC and BMP: 07/27/20 03:33 07/27/20 03:33 Abnormal Lab Findings: Abnormal Labs 07/27/20 07/27/20 03:33 03:33 RDW 16.6 H Lymph % (Auto) 12.6 L Lymph # (Auto) 0.9 L Seg Neutrophils % 81.5 H Potassium 3.5 L Glucose 121 H Assessment and Plan #this is 40 ys old femal presented with recurrent dizziness CP and SOB associated with feeling light headed -In ER CT brain is unremarkable -NIH#0 -CTA chest is unremarkable with no sign of PE # Hx of anxiety -On Remeron and Abilift -denied depression or hallucination PLAN 1-maintain ASA and Lipitor for now 2- Neuro check daily 3- MRI brain 4 CTA brain and neck as needed-- will do if MRI brain is abnormal 5- Cardiac monitoring and cardiac enzymes 6- Consider psychiatry evaluation ? Not clear why pt. is on Abilify DVT precaution will follow
--- NOTE | 2020-07-27 14:49 | Electrocardiograph Report ---
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
--- NOTE | 2020-07-27 16:56 | Vascular Lab Report ---
"DUPLEX DOPPLER ULTRASOUND CAROTID, BILATERAL INDICATION / CLINICAL INFORMATION: stroke. COMPARISON: None available. FINDINGS: RIGHT CAROTID: - PLAQUE ESTIMATE (%): < 50% - CCA velocity: 118 cm/sec. - ICA peak systolic velocity: 112 cm/sec. - ICA/CCA PSV Ratio: 0.95 Right Vertebral Artery: Antegrade flow. LEFT CAROTID: - PLAQUE ESTIMATE: < 50% - CCA velocity: 120 cm/sec. - ICA peak systolic velocity: 114 cm/sec. - ICA/CCA PSV Ratio: 0.95 Left Vertebral Artery: Antegrade flow. IMPRESSION: 1. Right Internal Carotid Artery: Less than 50% diameter stenosis. 2. Left Internal Carotid Artery: Less than 50% diameter stenosis. Velocity criteria are extrapolated from diameter data as defined by the Society of Radiologists in [facility] Consensus Conference, Radiology 2003; 229;340-346. Degree of || ICA PSV || Plaque || ICA/CCA Stenosis (%) || (cm/sec) || estimate (%) || PSV Ratio Normal ............. || ...<125........... || ...None......... || ...<2.0 <50................... || ...<125........... || ......<50......... || ...<2.0 50-69................ || ..125-230...... || ......>50......... || 2.0-4.0 >70 but <100... || >230.............. || .......>50........ || ...>4.0 Near occlusion || High/low/none || ...visible....... || variable Total occlusion || ....None........... || ..no lumen... || ....N/A Signer Name: Daryn Parker MD Signed: 07/27/2020 4:52 PM Workstation Name: [id number]"
--- NOTE | 2020-07-27 16:59 | Magnetic Resonance Report ---
MRA HEAD WITHOUT CONTRAST HISTORY: Carotid stenoses COMPARISON: None. TECHNIQUE: Routine MRA of the head is performed. 3-D/MIP reformats postprocessed. CONTRAST: None. FINDINGS: Intracranial vertebral arteries: Minimal narrowing in the lumen of the right internal carotid artery at the C3 and proximal C4 segment could be artifactual. Basilar artery: No significant abnormality. Posterior cerebral arteries: No significant abnormality. Intracranial internal carotid arteries: No significant abnormality. Anterior cerebral arteries: No significant abnormality. Middle cerebral arteries: No significant abnormality. Variants and anomalies:None Additional findings: None. IMPRESSION: No significant abnormality. Signer Name: Kvng Moran MD Signed: 07/27/2020 4:54 PM Workstation Name: [id number]
--- NOTE | 2020-07-27 17:10 | Magnetic Resonance Report ---
MR brain wo con INDICATION / CLINICAL INFORMATION: Headache. TECHNIQUE: Multiplanar, multisequence MR images of the brain were obtained. COMPARISON: CT head July 27, 2020 FINDINGS: INTRACRANIAL: No restricted diffusion. No hemorrhage. Ventricular caliber is normal. No extra-axial c ollection. No mass. No herniation. Major intracranial vascular flow voids are preserved. ORBITS: No significant abnormality of visualized orbits. SINUSES / MASTOIDS: Left alveolar recess maxillary sinus mucosal retention cyst which is a common josy ign finding. ADDITIONAL FINDINGS: None. IMPRESSION: 1. No significant intracranial abnormality. Signer Name: Shine Magallon MD Signed: 07/27/2020 5:06 PM Workstation Name: [id number]
[2020-07-27] MEDS ORDERED: MIRTAZAPINE 15 MG TAB PO SCH (22:00)
[2020-07-28 08:36] LABS: Chol/HDL Ratio 3.6 %
--- NOTE | 2020-07-28 09:24 | Consultation ---
History of Present Illness - Reason for Consult Consult date: 07/28/20 Reason for consult: anxiety - History of Present Psychiatric Illness Antonella Scott is a 40 year old patient who was admitted for lightheadedness, dizziness and chest pain. The patient was seen today, she is a/o x 3. She says she suffers from anxiety and feels like she can't calm her self down at times. The patient says she was admitted to [place] not long ago for stress and anxiety. She says they started her on Abilify and it helped her initially. Informed the patient that abilify is not for anxiety. She says she also was hearing voices at the time when she was admitted to [facility] but was told they were giving it to her for anxiety and stress. She denies hearing the voices now. The patient says she would like to be started on something for stress and her anxiety. She also denies SI/HI. PAST PSYCHIATRIC HISTORY: Diagnoses: Anxiety Suicide attempts or Self-harm behavior: Denies Prior psychiatric hospitalizations: Yes Substance Abuse history: denies Previous psychiatric medications tried: abilify Outpatient treatment: Yes PAST MEDICAL HISTORY: None reported Family Psychiatric History: None reported or documented SOCIAL HISTORY Marital Status: Living Arrangements: With family Employment Status: Disabled Access to guns/weapons: Denies Education: high school History of Abuse: Denies Legal History: Denies REVIEW OF SYSTEMS Constitutional: Negative for weight loss ENT: Negative for stridor Respiratory: Negative for cough or hemoptysis All other systems reviewed and are negative MENTAL STATUS EXAMINATION General Appearance and Behavior: Age appropriate, good hygiene, not wearing appropriate clothes, good eye contact, cooperative polite with questioning. Cooperation: Participating Psychomotor Behavior: Psychomotor normal Mood: "better" Affect and affective range: Euthymic Thought Process: Goal directed Speech: Normal tone and pace Thought Content Suicidal Ideation: Denies Homicidal Ideation: Denies Hallucinations: Denies Delusions: None elicited Impulse Control: Unimpaired Insight and Judgment: Normal insight and judgment Memory: Normal Attention: Undivided attention impaired Orientation: A/o x 3 Assessment and Plan (1) Generalized Anxiety Disorder (2) Major Depressive Disorder Treatment Plan Continue home abilify Start Lexapro 5mg po daily Sitter: defer to primary Medical: Per medical Disposition: Do not recommend acute psychiatric inpatient Will sign off. Thank you for this consult Case staffed with Dr. Rosa. Medications and Allergies Allergies Allergy/AdvReac Type Severity Reaction Status Date / Time metoclopramide [From Reglan] Allergy Unknown Verified 07/06/20 08:46 promethazine [From Phenergan] Allergy Unknown Verified 07/06/20 08:46 Home Medications Medication Instructions Recorded Confirmed Last Taken Type ARIPiprazole [Abilify] 10 mg PO DAILY 07/27/20 07/27/20 Unknown History Famotidine [Pepcid] 20 mg PO QDAY 07/27/20 07/27/20 Unknown History Mirtazapine [Remeron 15mg TAB] 15 mg PO QHS 07/27/20 07/27/20 Unknown History Active Meds: Active Medications Aripiprazole (Aripiprazole 10 Mg Tab) 10 mg PO DAILY PRECIOUS Aspirin (Aspirin 325 Mg Tab) 325 mg PO QDAY [facility] Atorvastatin Calcium (Atorvastatin 40 Mg Tab) 40 mg PO QHS [facility] Last Admin: 07/27/20 22:05 Dose: 40 mg Documented by: Famotidine (Famotidine 20 Mg Tab) 20 mg PO QDAY PRECIOUS Mirtazapine (Mirtazapine 15 Mg Tab) 15 mg PO QHS [facility] Last Admin: 07/27/20 22:05 Dose: 15 mg Documented by: Sodium Chloride (Sodium Chloride 0.9% 10 Ml Flush Syringe) 10 ml IV PRN PRN PRN Reason: LINE FLUSH Mental Status Exam - Vital signs Last Vital Signs Temp 98.1 F 07/28/20 03:59 Pulse 74 07/28/20 03:59 Resp 16 07/28/20 03:59 BP 113/71 07/28/20 03:59 Pulse Ox 96 07/28/20 03:59 Results Result Diagrams: 07/27/20 03:33 07/27/20 03:33 Abnormal lab results 07/28/20 Range/Units 06:54 HDL Cholesterol 38 L (40-59) mg/dL All other labs normal.
[2020-07-28] MEDS ORDERED: ARIPiprazole 10 MG TAB PO SCH (10:00)
[2020-07-28] MEDS ORDERED: ASPIRIN 325 MG TAB PO SCH (10:00)
[2020-07-28] MEDS ORDERED: FAMOTIDINE 20 MG TAB PO SCH (10:00)
--- NOTE | 2020-07-28 10:09 | Electrocardiograph Report ---
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
[2020-07-28] MEDS ORDERED: ESCITALOPRAM 10 MG/10 ML ORAL LIQD PO SCH (11:00)
[2020-07-28 12:18] VITALS: BP 131/90
--- NOTE | 2020-07-28 12:24 | Progress Note ---
Assessment and Plan #this is 40 ys old femal presented with recurrent dizziness CP and SOB associated with feeling light headed -In ER CT brain is unremarkable -NIH#0 -CTA chest is unremarkable with no sign of PE # Hx of anxiety -On Remeron and Abilift -denied depression or hallucination PLAN 1-maintain ASA and Lipitor for now 2- Neuro check daily 3- MRI brain is unremarkable 4 -US carotid is unremarkable 5- Cardiac monitoring and cardiac enzymes unremarkable 6- psychiatry evaluation DVT precaution will sign off Subjective Date of service: 07/28/20 Principal diagnosis: anxiety evaluated by psychiatry Interval history: doing well Objective - Vital Sign Vital Signs - 12hr 07/28/20 07/28/20 07/28/20 02:00 03:59 10:00 Temperature 98.1 F Pulse Rate 79 74 71 Respiratory 16 Rate Blood Pressure 113/71 O2 Sat by Pulse 96 Oximetry 07/28/20 11:53 Temperature 98.2 F Pulse Rate 84 Respiratory 18 Rate Blood Pressure 131/90 O2 Sat by Pulse 100 Oximetry - General Apperance Constitutional: comfortable - EENT EENT: PERRL, mucous membranes moist - Respiratory Respiratory: chest non-tender, lungs clear - Cardiovascular Cardiovascular: regular rate Extremities: no peripheral edema bilat - Gastrointestinal Gastrointestinal: normoactive bowel sounds - Integumentary Integumentary: normal - Neurologic Cranial nerve examination: PERRL, EOMI Speech examination: intact Detailed motor examination: grossly full strength in - Laboratory Findings CBC and BMP: 07/27/20 03:33 07/27/20 03:33 Abnormal Lab Findings: Abnormal Labs 07/27/20 07/27/20 07/28/20 03:33 03:33 06:54 RDW 16.6 H Lymph % (Auto) 12.6 L Lymph # (Auto) 0.9 L Seg Neutrophils % 81.5 H Potassium 3.5 L Glucose 121 H HDL Cholesterol 38 L
--- NOTE | 2020-07-28 13:26 | Discharge Summary ---
Providers - Providers Date of Admission: 07/27/20 09:28 Date of discharge: 07/28/20 Attending physician: TORIBIO NGUYEN 07/27/20 11:12 Occupational Therapy Evaluate and Treat [CONS] Routine Comment: Reason For Exam: Neuro deficits Physical Therapy Evaluation and Treat [CONS] Routine Comment: Reason For Exam: Neuro deficits 07/27/20 11:19 Consult to Physician [CONS] Urgent Comment: Consulting Provider: STEVE QUINTERO Physician Instructions: Reason For Exam: Acute CVA 07/27/20 17:16 Speech Therapy Evaluation and Treat [CONS] Routine Reason For Exam: Neuro symptoms/evaluate CVA 07/27/20 18:40 psychiatry consult [Consult to Mental Health] [CONS] Routine Reason For Exam: Generalized anxiety disorder Primary care physician: BR[employer] Hospitalization Reason for admission: Dizziness, generalized weakness, word finding difficulty Condition: Serious Pertinent studies: CT head without contrast MRI brain CTA head CTA chest Echocardiogram Carotid Doppler Echo Hospital course: --Dizziness, slurred speech, word finding difficulty Not a candidate for TPA Telemetry neurologist recommended CVA work-up Admit to the hospital, aspirin and statin Extensive neuro work-up MRI/MRA brain Carotid Doppler, echocardiogram Neuro consult PT, OT, rehabilitation, speech therapy --Possible acute CVA; Not a candidate for TPA, aspirin and statin, extensive neuro work-up Neurology consult --Generalized anxiety disorder; Symptoms could be partly due to general anxiety continue current psych medications Psych consult --Obesity; BMI 39.1 Patient needs weight reduction when medically stable Dietary modification, lifestyle changes, exercise as tolerated and weight reduction When medically stable --Full CODE STATUS; --DVT prophylaxis; Lovenox Physical therapy evaluated the patient, no home therapy needs Extensive neuro work-up is negative Cleared by neurology for discharge and follow-up with primary care physician, psych and private neurologist per schedule Stable at discharge Disposition: DC-01 TO HOME OR SELFCARE Final Discharge Diagnosis (Prints w/discharge instructions): Dizziness. Neuro symptoms. CVA ruled out. Generalized anxiety disorder. Obesity BMI 39.9 Time spent for discharge: 35 min Core Measure Documentation - Palliative Care Palliative Care/ Comfort Measures: Not Applicable - Core Measures Any of the following diagnoses?: none Exam - Constitutional Vitals: Temp Pulse Resp BP Pulse Ox 98.2 F 84 18 131/90 100 07/28/20 11:53 07/28/20 11:53 07/28/20 11:53 07/28/20 11:53 07/28/20 11:53 General appearance: Present: no acute distress, well-nourished - EENT Eyes: Present: PERRL, EOM intact - Neck Neck: Present: supple, normal ROM - Respiratory Respiratory effort: normal Respiratory: bilateral: diminished, negative: rales, rhonchi, wheezing - Cardiovascular Rhythm: regular Heart Sounds: Present: S1 & S2 - Extremities Extremities: no ischemia, No edema - Abdominal General gastrointestinal: Present: soft, non-tender, non-distended, normal bowel sounds - Integumentary Integumentary: Present: clear, warm - Musculoskeletal Musculoskeletal: strength equal bilaterally, generalized weakness - Psychiatric Psychiatric: appropriate mood/affect, cooperative - Neurologic Neurologic: CNII-XII intact, moves all extremities Plan Activity: advance as tolerated, fall precautions Diet: regular Additional Instructions: Fall precautions. Advised to see primary care physician in 3 to 5 days. Advised to see private neurologist Dr. Mujica in 1 to 2 weeks. Advised to see psychiatrist in 1 to 2 weeks. If you have worsening symptoms contact MD or go to emergency room as needed Follow up with: PRIMARY MD RITCHIE [Primary Care Provider] - 7 Days LILY MUJICA MD [Staff Physician] - 7 Days DIDI CAMPBELL MD [Staff Physician] - 7 Days Prescriptions: Aspirin EC [Halfprin EC] 81 mg PO QDAY #30 tablet. Escitalopram Oxalate [Lexapro] 5 mg PO QDAY #30 tablet AtorvaSTATin [Lipitor] 20 mg PO QHS #30 tab
== END 2020-07-28 16:00 | disposition home or self-care (01) ==
LOC: ED 03:15 → 4A 09:28
PROVIDERS: ADMIT Internal Medicine; ATTEND Internal Medicine
DX: R42 Dizziness and giddiness (principal); R47.81 Slurred speech; R47.01 Aphasia; F41.0 Panic disorder [episodic paroxysmal anxiety]; I10 Essential (primary) hypertension; R29.90 Unspecified symptoms and signs involving the nervous system; F41.1 Generalized anxiety disorder; E66.9 Obesity, unspecified; Z68.39 Body mass index [BMI] 39.0-39.9, adult; Z90.49 Acquired absence of other specified parts of digestive tract; Z98.51 Tubal ligation status; Z79.82 Long term (current) use of aspirin
CPT/HCPCS: 36415; 70450; 70544; 70551; 71046; 71275; 80053; 80061; 83036; 84443; 84484; 84703; 85025; 92610; 93005; 93306; 93880; 96360; 97162; 99285; A9270; G0378; J7030; Q9967

== ENCOUNTER 2020-07-30 00:01 | Emergency (ER) | payer OTHER ==
[2020-07-30 01:20] LABS: Basophils % (Auto) 0.4 % (0.0-1.8); Eosinophils # (Auto) 0.1 K/mm3 (0.0-0.4); Eosinophils % (Auto) 1.2 % (0.0-4.3); Hematocrit 38.4 % (30.3-42.9); Hemoglobin 13.2 gm/dl (10.1-14.3); Lymphocytes # (Auto) 1.3 K/mm3 (1.2-5.4); Lymphocytes % (Auto) 16.1 % (13.4-35.0); Mean Corpuscular HGB Conc 34 % (30-34); Mean Corpuscular Volume 90 fl (79-97); Monocytes # (Auto) 0.5 K/mm3 (0.0-0.8); Monocytes % (Auto) 6.8 % (0.0-7.3); Platelet Count 268 K/mm3 (140-440); Red Blood Count 4.26 M/mm3 (3.65-5.03); Red Cell Distribution Width 16.3 % (13.2-15.2)
[2020-07-30 01:28] LABS: Bilirubin,Urine NEG (Negative); Blood,Urine LG (Negative); Color,Urine Red (Yellow); Mucus,Urine 3+ /HPF; Urobilinogen,Urine < 2.0 mg/dL (<2.0)
[2020-07-30 01:31] LABS: RBC,Urine > 182.0 /HPF (0.0-6.0)
[2020-07-30 01:34] LABS: Alanine Aminotransferase 20 units/L (7-56); Albumin 4.1 g/dL (3.9-5); BUN/Creatinine Ratio 13; Blood Urea Nitrogen 9 mg/dL (7-17); Calcium 9.5 mg/dL (8.4-10.2); Hemolysis Index 3
--- NOTE | 2020-07-30 03:50 | Emergency Department Report ---
ED General Adult HPI - General Chief complaint: Allergic Reaction Stated complaint: REACTION TO MEDS;MAGED Time Seen by Provider: 07/30/20 02:21 Source: patient Mode of arrival: Ambulatory Limitations: No Limitations - History of Present Illness Initial comments: 40-year-old female presents emerged department complaining of nausea occasional vomiting and suprapubic discomfort with increased urinary urgency for the last few days of unknown etiology. States she was also here a couple days ago admitted for anxiety and unable to tolerate the Lexapro after 1 dose and seeks an alternative treatment. Reports no fever, chills, sweats but does have occasional lightheadedness which she thinks may be related to the medication -: Gradual Radiation: non-radiation Quality: dull Consistency: constant Improves with: none Worsens with: none Associated Symptoms: denies other symptoms. denies: chest pain, cough, loss of appetite, malaise, nausea/vomiting Treatments Prior to Arrival: none - Related Data Home Medications Medication Instructions Recorded Confirmed Last Taken ARIPiprazole [Abilify TAB] 10 mg PO DAILY 07/27/20 07/27/20 Unknown Famotidine [Pepcid] 20 mg PO QDAY 07/27/20 07/27/20 Unknown Mirtazapine [Remeron 15mg TAB] 15 mg PO QHS 07/27/20 07/27/20 Unknown Previous Rx's Medication Instructions Recorded Last Taken Type Aspirin EC [Halfprin EC] 81 mg PO QDAY #30 tablet. 07/28/20 Unknown Rx AtorvaSTATin [Lipitor] 20 mg PO QHS #30 tab 07/28/20 Unknown Rx Escitalopram Oxalate [Lexapro] 5 mg PO QDAY #30 tablet 07/28/20 Unknown Rx Nitrofurantoin [place]/M-Cryst 100 mg PO Q12HR #20 capsule 07/30/20 Unknown Rx [Macrobid CAP] Phenazopyridine [Pyridium] 200 mg PO TID #9 tab 07/30/20 Unknown Rx Allergies Allergy/AdvReac Type Severity Reaction Status Date / Time metoclopramide [From Reglan] Allergy Unknown Verified 07/06/20 08:46 promethazine [From Phenergan] Allergy Unknown Verified 07/06/20 08:46 ED Review of Systems ROS: Stated complaint: REACTION TO MEDS;MAGED Other details as noted in HPI Comment: All other systems reviewed and negative ED Past Medical Hx - Past Medical History Previous Medical History?: Yes Hx Hypertension: No Hx Heart Attack/AMI: No Hx Congestive Heart Failure: No Hx Diabetes: No Hx Liver Disease: No Hx Renal Disease: No Hx Sickle Cell Disease: No Hx Seizures: No Hx Psychiatric Treatment: Yes (Anxiety) Hx Asthma: No Hx COPD: No - Surgical History Past Surgical History?: Yes Hx Pacemaker: No Hx Internal Defibrillator: No Additional Surgical History: Polycystic cyst, Uterine fibroid, tubiligation - Social History Smoking Status: Never Smoker Substance Use Type: None - Medications Home Medications: Home Medications Medication Instructions Recorded Confirmed Last Taken Type ARIPiprazole [Abilify TAB] 10 mg PO DAILY 07/27/20 07/27/20 Unknown History Famotidine [Pepcid] 20 mg PO QDAY 07/27/20 07/27/20 Unknown History Mirtazapine [Remeron 15mg TAB] 15 mg PO QHS 07/27/20 07/27/20 Unknown History Aspirin EC [Halfprin EC] 81 mg PO QDAY #30 tablet.dr 07/28/20 Unknown Rx AtorvaSTATin [Lipitor] 20 mg PO QHS #30 tab 07/28/20 Unknown Rx Escitalopram Oxalate [Lexapro] 5 mg PO QDAY #30 tablet 07/28/20 Unknown Rx Nitrofurantoin [place]/M-Cryst 100 mg PO Q12HR #20 capsule 07/30/20 Unknown Rx [Macrobid CAP] Phenazopyridine [Pyridium] 200 mg PO TID #9 tab 07/30/20 Unknown Rx ED Physical Exam - General Limitations: No Limitations General appearance: alert, in no apparent distress - Head Head exam: Present: atraumatic, normocephalic - Eye Eye exam: Present: normal appearance, PERRL, EOMI. Absent: scleral icterus, conjunctival injection Pupils: Present: normal accommodation - ENT ENT exam: Present: normal exam, normal orophraynx, mucous membranes moist, TM's normal bilaterally - Neck Neck exam: Present: normal inspection, full ROM, lymphadenopathy - Respiratory Respiratory exam: Present: normal lung sounds bilaterally. Absent: respiratory distress, wheezes, rhonchi, chest wall tenderness, accessory muscle use, decreased breath sounds - Cardiovascular Cardiovascular Exam: Present: regular rate, normal rhythm. Absent: bradycardia, tachycardia, systolic murmur, diastolic murmur, rubs, gallop - GI/Abdominal GI/Abdominal exam: Present: soft, normal bowel sounds. Absent: distended, tenderness, guarding, rebound, hyperactive bowel sounds, organomegaly, mass - Extremities Exam Extremities exam: Present: normal inspection, full ROM, tenderness, normal capillary refill - Back Exam Back exam: Present: normal inspection. Absent: full ROM, CVA tenderness (R), CVA tenderness (L), muscle spasm - Neurological Exam Neurological exam: Present: alert, oriented X3, CN II-XII intact, normal gait - Psychiatric Psychiatric exam: Present: normal affect, normal mood. Absent: agitated, anxious, flat affect - Skin Skin exam: Present: warm, dry, intact, normal color. Absent: rash ED Course Vital Signs 07/30/20 00:37 Temperature 98.6 F Pulse Rate 93 H Respiratory 20 Rate Blood Pressure 150/93 O2 Sat by Pulse 98 Oximetry ED Medical Decision Making - Lab Data Result diagrams: 07/30/20 01:00 07/30/20 01:00 Critical care attestation.: If time is entered above; I have spent that time in minutes in the direct care of this critically ill patient, excluding procedure time. ED Disposition Clinical Impression: UTI (urinary tract infection), Abdominal pain Disposition: - TO HOME OR SELFCARE Is pt being admited?: No Does the pt Need Aspirin: No Condition: Stable Instructions: Nausea, Adult, Abdominal Pain, Adult, [id number], Urinary Tract Infection, Adult, Pain Without a Known Cause Prescriptions: Nitrofurantoin [place]/M-Cryst [Macrobid CAP] 100 mg PO Q12HR #20 capsule Phenazopyridine [Pyridium] 200 mg PO TID #9 tab Referrals: NEHEMIAH WILLIAM MD [Primary Care Provider] - 3-5 Days
[2020-07-30 04:20] VITALS: BP 134/62
== END 2020-07-30 04:21 | disposition home or self-care (01) ==
LOC: ED 00:01
DX: N39.0 Urinary tract infection, site not specified (principal); R10.9 Unspecified abdominal pain; F41.9 Anxiety disorder, unspecified; Z79.899 Other long term (current) drug therapy; Z88.8 Allergy status to other drugs, medicaments and biological substances; Z98.890 Other specified postprocedural states; Z98.51 Tubal ligation status
CPT/HCPCS: 36415; 80053; 81001; 83690; 84703; 85025